=== PATIENT | male | born 1945 | race African-American/Black ===

== ENCOUNTER 2019-02-18 14:13 | Emergency (ER) | payer OTHER ==
[~2019-02-18] VITALS: Ht 170.2 cm; Wt 81.6 kg
[2019-02-18 14:23] VITALS: BP 171/101
--- NOTE | 2019-02-18 14:38 | NUR ---
73 Y/O M C/O RIGHT SHOULDER PAIN SINCE 5:30AM TODAY. PT STATES HE HAS HAD A DISLOCATED SHOULDER ONCE PRIOR, AND BELIEVES IT MAY BE DISLOCATED AFTER A FALL THIS MORNING. PT STATES HE TOOK PERCOCET THIS MORNING FOR THE PAIN. PT POSITIONED FOR COMFORT, AT BEDSIDE. [facility] HX: GOUT Addendum: 02/18/19 at [address] [facility] OBVIOUS DEFORMITY NOTED TO RIGHT SHOULDER, RANGE OF MOTION LIMITED WITH PAIN 8\10. PULSES PRESENT AND EQUAL BILATERALY.
--- NOTE | 2019-02-18 14:41 | NUR ---
X-RAY AT BEDSIDE.
--- NOTE | 2019-02-18 15:00 | NUR ---
PT HOOKED UP TO MONITOR FOR B/P, HR/ 02. WILL CONTINUE TO MONITOR DURING AND AFTER PROCEDURE.
[2019-02-18] MEDS ORDERED: MIDAZOLAM 2 MG/2 ML VIAL IVP ONE (15:05)
[2019-02-18] MEDS ORDERED: NACL 0.9% 500 ML IV ONE (15:05)
[2019-02-18] MEDS ORDERED: KETAMINE 10 MG/ML UD SYR **ER IVP ONE (15:05)
--- NOTE | 2019-02-18 15:48 | NUR ---
CASE RESOURCE MANAGER STANDBY FOR CONSCIOUS SEDATION PLACED ON SUPPLEMENTAL OXYGEN AT 2 LPM VIA NC AND CO2 MONITORING
--- NOTE | 2019-02-18 15:53 | NUR ---
DR MACDONALD AND RT AT BEDSIDE. DR MACDONALD ADMINISTERED VERSED AND KETAMINE BEGINING AT 1554. SHOULDER REDUCTION BEGAN AT 1556. PT TOLERATING PROCEDURE WELL. VITAL SIGNS CONTINUE TO BE MONITORED AND DOCUMENTED.
--- NOTE | 2019-02-18 16:00 | NUR ---
X-RAY AT BEDSIDE TAKING XRAY TO CONFIRM SHOULDER RELOCATION POST PROCEDURE.
--- NOTE | 2019-02-18 16:02 | NUR ---
SLING APPLIED TO RIGHT ARM/SHOULDER. PT TOLERATED WELL. CONFIRMED APPLICATION.
--- NOTE | 2019-02-18 16:10 | NUR ---
MD AT BEDSIDE, PT AOX4, TALKING, STATING HE FEELS NO DISCOMFORT. AT [facility].
[2019-02-18 17:23] VITALS: BP 203/95
--- NOTE | 2019-02-18 17:23 | NUR ---
Patient discharged with v/s stable. Written and verbal after care instructions given and explained. Patient verbalized understanding. Ambulatory with steady gait. All questions addressed prior to discharge. Advised to follow up with PMD.
== END 2019-02-18 17:23 | disposition home or self-care (01) ==
LOC: MED 14:13
DX: S43.004A Unspecified dislocation of right shoulder joint, initial encounter (principal); W19.XXXA Unspecified fall, initial encounter; Y93.89 Activity, other specified; Y92.89 Other specified places as the place of occurrence of the external cause; Y99.8 Other external cause status
CPT/HCPCS: 23650; 73030; 99152; 99285; J2250; J7030; Q0092; 87804; 99283